=== PATIENT | female | born 1980 | race Caucasian/White ===

== ENCOUNTER 2016-06-09 17:15 | Emergency (ER) | payer OTHER ==
[~2016-06-09 17:15] MED LIST: ESTR1TD TD; LETR2.5T PO; OMEP40CA2 PO; XANA0.25 PO
[2016-06-09] MEDS ORDERED: PERCOCET 5MG/325MG TAB As Ordered ONE (20:12)
[2016-06-09 20:18] LABS: BASO # 0.1 K/mm3 (0.0-0.2); BASO % 1.7 % (0.0-1.0); EOS # 0.1 K/mm3 (0.0-0.50); EOS % 0.8 % (0.0-3.0); LARGE UNSTAINED CELL # 0.1 K/mm3 (0.0-0.4); LARGE UNSTAINED CELL % 1.4 % (0.0-4.0); LYMPH # 2.3 K/mm3 (1.5-4.5); LYMPH % 25.5 % (24.0-44.0); MEAN CORPUSCULAR HEMOGLOBIN 28.9 pg (27.0-33.0); MEAN CORPUSCULAR HGB CONC 32.4 g/dl (32.0-36.5); MEAN CORPUSCULAR VOLUME 89.3 fl (80.0-96.0); MONO # 0.3 K/mm3 (0.0-0.8); NEUTROPHILS # 5.6 K/mm3 (1.8-7.7); NEUTROPHILS % 66.5 % (36.0-66.0); PLATELET COUNT, AUTOMATED 383 k/mm3 (150-450); RED CELL DISTRIBUTION WIDTH 13.6 % (11.5-14.5); WHITE BLOOD COUNT 8.4 K/mm3 (4.0-10.0)
[2016-06-09 20:33] LABS: CONTROL LINE HCG INT CTR LINE PRESENT
[2016-06-09 20:49] LABS: ANION GAP 11 MEQ/L (8-16); BLOOD UREA NITROGEN 7 MG/DL (7-18); CALCIUM LEVEL 9.7 MG/DL (8.5-10.1); CARBON DIOXIDE LEVEL 26 MEQ/L (21-32); CHLORIDE LEVEL 106 MEQ/L (98-107); CREATININE FOR GFR 0.74 MG/DL (0.55-1.02); GLOMERULAR FILTRATION RATE > 60.0 (>60); GLUCOSE, FASTING 101 MG/DL (70-105); MAGNESIUM LEVEL 2.2 MG/DL (1.8-2.4); SODIUM LEVEL 143 MEQ/L (136-145)
--- NOTE | 2016-06-09 21:10 | REP ---
Clinical: Chest pain . Comparison: None. Findings: The mediastinum and cardiac silhouette are stable and within normal limits for portable technique. The lung dash are clear without acute consolidation, effusion, or pneumothorax. Skeletal structures are intact. Impression: Normal portable chest x-ray Signed by Martin Solis MD 06/09/2016 09:01 P
[2016-06-09] MEDS ORDERED: ISOVUE-370 76% 100ML VIAL (Q9967) As Ordered ONE (21:56)
--- NOTE | 2016-06-09 22:30 | REPUSA ---
CT angiogram of the chest Clinical statement: Chest pain and shortness of breath. Technique: Multiple axial CT images were obtained from the thoracic inlet through the upper abdomen a fter a bolus administration of nonionic intravenous contrast. Coronal and sagittal reconstructions we re also obtained. No comparison is available. Findings: The pulmonary arteries are well-opacified with contrast, with no intraluminal filling defec ts to suggest embolism. The thoracic aorta is unremarkable. Thyroid gland is within normal limits. Th ere is no thoracic lymphadenopathy. There are no pericardial or pleural effusions. The lungs are lázaro r. Limited imaging of the upper abdomen is unremarkable. There are no suspicious osseous lesions. Impression: Unremarkable CT examination of the chest. No evidence of pulmonary embolism.
--- NOTE | 2016-06-09 23:02 | EDDOCDS ---
Physician Documentation [facility] Name: Steph Morales Age: 35 yrs Sex: Female : 1980 Arrival Date: 06/09/2016 Time: 17:15 Bed 18 Private MD: NO PRIMARY PHYSICIAN, . Disposition: 06/09/16 22:52 Discharged to Home/Self Care. Impression: Palpitations, Chest pain, unspecified, Gastritis, unspecified - GERD, Ventricular premature depolarization - PVC. - Condition is Stable. - Discharge Instructions: Nonspecific Chest Pain, Gastroesophageal Reflux Disease, Adult, Palpitations, Premature Ventricular Contraction. - Prescriptions for omeprazole 20 mg Oral capsule,delayed release(DR/EC) - take 1 capsule by ORAL route once daily for 28 days; 30 capsule. - Medication Reconciliation, Local Pharmacy Hours form. - Follow up: [facility]; When: 2 - 3 days. - Problem is new. - Symptoms have improved. - Notes: follow up with PCP. return if worsening symptoms Historical: - Allergies: No known drug Allergies; - Home Meds: 1. nortriptyline 25 mg Oral cap daily - PMHx: Anxiety; GERD; Infertility; - PSHx: Hysteroscopy; D & C; upper endoscopy; - Social history: Smoking status: Patient states was never smoker of tobacco. No barriers to communication noted, The patient speaks fluent Kyrgyz. - Family history: Not pertinent. - : The pt / caregiver states he / she is not on anticoagulants. Home medication list is obtained from the patient, [employer] import data. - Exposure Risk Screening:: None identified. 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 3 in. (160.02 cm) (R); Pain 4/10; 19:15 BP 123 / 87; Pulse 79; Resp 16; Temp 96.9; Pulse Ox 100% ; Pain 0/10; cmb 19:53 BP 139 / 89 (auto/); ko2 19:54 Pulse 80 MON; Pulse Ox 100% ; ko2 20:08 BP 155 / 94 (auto/); ko2 20:08 Pulse 70 MON; Pulse Ox 100% ; ko2 20:23 BP 147 / 92 (auto/); ko2 20:24 Pulse 58 MON; Pulse Ox 100% ; ko2 20:38 BP 149 / 75 (auto/); ko2 20:38 Pulse 60 MON; Pulse Ox 100% ; ko2 20:53 BP 155 / 81 (auto/); ko2 20:53 Pulse 74 MON; Pulse Ox 98% ; ko2 21:08 BP 145 / 91 (auto/); ko2 21:08 Pulse 62 MON; Pulse Ox 100% ; ko2 22:28 BP 119 / 82 (auto/); ko2 22:29 Pulse 64 MON; Pulse Ox 99% ; ko2 17:16 Body Mass Index 25.69 (65.77 kg, 160.02 cm) gr2 MDM: 17:45 ECG WITH READING ER PHYS+CARDIAG ordered. EDMS 19:57 IV Saline Lock ordered. ml 19:57 Cigarette Machine Filler/Pulse Ox/q 15 min VS ordered. ml 19:57 Rhythm Strip to chart ordered. ml 19:57 oxyCODONE-acetaminophen 5 mg-325 mg 1 tabs PO once ordered. ml 19:57 CBC with Diff Ordered. EDMS 19:57 MED Profile Ordered. EDMS 19:57 CIP Ordered. EDMS 19:57 Troponin Ordered. EDMS 19:57 Magnesium Level Ordered. EDMS 19:57 HCG,Serum Qualitative Ordered. EDMS 19:59 Chest, 1 View Ordered. EDMS 20:02 ECG WITH READING ER PHYS+CARDIAG ordered. EDMS 20:57 CBC with Diff Reviewed. ml 20:57 MED Profile Reviewed. ml 20:57 CIP Reviewed. ml 20:57 Troponin Reviewed. ml 20:57 Magnesium Level Reviewed. ml 20:57 HCG,Serum Qualitative Reviewed. ml 20:58 CT Chest Angio R/O PE Ordered. EDMS 21:04 Financial registration complete. [email or web address] 21:33 [facility] Payment Agreement was scanned into Heavy and attached to record. [email or web address] 22:48 Chest, 1 View Reviewed. ml Administered Medications: 20:15 Drug: oxyCODONE-acetaminophen 1 tabs [oxycodone-acetaminophen 5 mg-325 mg tablet (1 ko2 tabs)] Route: PO; Signatures: Dispatcher MedHost EDMS Alhaji Landis MD MD ml Sleeman, Miranda, RN RN Inez GibbonsRN RN Leonor Betancourt RN RN ko2 Sorenson, Kimberly, Reg Reg [email or web address] The chart was reviewed and I authenticate all verbal orders and agree with the evaluation and treatment provided.Attachments: 21:33 [facility] Payment Agreement [email or web address] MTDD
--- NOTE | 2016-06-09 23:02 | EDDOCDS ---
Nurse's Notes [facility] Name: Steph Morales Age: 35 yrs Sex: Female : 1980 Arrival Date: 06/09/2016 Time: 17:15 Bed 18 Private MD: NO PRIMARY PHYSICIAN, . Diagnosis: Palpitations;Chest pain, unspecified;Gastritis, unspecified-GERD;Ventricular premature depolarization-PVC Presentation: 06/09 17:40 Presenting complaint: Patient states: she has had chest tightness for 2 hours an is kcs super gassy and her head keeps crackling. Aspirin was not taken prior to arrival. Adult Sepsis Screening: The patient does not have new or worsening altered mentation. Patient's respiratory rate is less than 22. Systolic blood pressure is greater than 100. Patient has a qSOFA score of 0- Negative Sepsis Screen. Suicide/Homicide risk assessment- the patient denies having any suicidal and/or homicidal ideations and does not present with any other emotional, behavioral or mental health complaints. Status: Patient is not a customer service assistant or dependent. Transition of care: patient was not received from another setting of care. 17:40 Acuity: JAIME Level 3 kcs 17:40 Method Of Arrival: Walkin/Carried/Asstd kcs Triage Assessment: 17:42 General: Appears comfortable, well developed, well nourished, well groomed, Behavior is kcs cooperative, pleasant. Pain: Location: epigastric area and into both arms Pain currently is 2 out of 10 on a pain scale. Quality of pain is described as tight. HIV screening NA for this visit Offered previously. Neurological: Level of Consciousness is awake, alert. Respiratory: Airway is patent Respiratory effort is even, unlabored, Respiratory pattern is regular, symmetrical. Derm: Skin is intact, is healthy with good turgor, Skin is dry, Skin is normal. 21:13 Cardiovascular: Chest pain is described as vague, radiates Does not radiate. episodes ko2 are intermittent began. 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 nortriptyline 25 mg Oral cap daily - PMHx: Anxiety; GERD; Infertility; - PSHx: Hysteroscopy; D & C; upper endoscopy; - Social history: Smoking status: Patient states was never smoker of tobacco. No barriers to communication noted, The patient speaks fluent Austrian. - Family history: Not pertinent. - : The pt / caregiver states he / she is not on anticoagulants. Home medication list is obtained from the patient, [employer] import data. - Exposure Risk Screening:: None identified. Screenin:40 Screening information is obtained from the patient. Fall risk: No risks identified. ko2 Assistance ADL's: requires no assistance with activities of daily living. Abuse/DV Screen: The patient / caregiver reports he/she is: not in a situation that causes fear, pain or injury. Nutritional screening: No deficits noted. Advance Directives: Currently, there is no health care proxy. There is no active DNR order. There is no living will. There is no Power of Morning Nanny. home support is adequate. Assessment: 19:37 General: pt states that she had some chest tightness and was "gassy" at work today. She ko2 does have a history of acid reflux but had never been that bad before. Pt states that the discomfort is getting better and on a pain scale it is a 1 out of 10. Pain: Location: epigastric area Pain currently is 1 out of 10 on a pain scale. Neurological: Level of Consciousness is awake, alert, Oriented to person, place, time. Cardiovascular: Heart tones S1 S2 present Rhythm is sinus rhythm. Respiratory: Airway is patent Respiratory effort is even, unlabored. GI: Bowel sounds present X 4 quads. Derm: Skin is normal. 20:50 General: Appears in no apparent distress, Behavior is appropriate for age, cooperative. ko2 Neurological: Level of Consciousness is awake, alert. Cardiovascular: Rhythm is sinus rhythm. Respiratory: Airway is patent Respiratory effort is even, unlabored. Derm: Skin is normal. 21:50 General: Appears in no apparent distress, Behavior is appropriate for age, cooperative. ko2 Neurological: Level of Consciousness is awake, alert, Oriented to person, place, time. Cardiovascular: Rhythm is sinus rhythm No ectopy. Respiratory: Airway is patent Respiratory effort is even, unlabored. Derm: Skin is normal. 22:59 General: Appears in no apparent distress, comfortable, Behavior is appropriate for age, tavon cooperative. Pain:. Pain: Location: head Pain currently is 3 out of 10 on a pain scale. Neurological: Neurological: Level of Consciousness is awake, alert. Respiratory: Airway is patent Respiratory effort is even, unlabored. Derm: Skin is normal. Vital Signs: 17:16 BP 151 / 97; Pulse 71; Resp 18 S; Temp 96.3(O); Pulse Ox 100% on R/A; Weight 65.77 kg gr2 (R); Height 5 ft. 3 in. (160.02 cm) (R); Pain 4/10; 19:15 BP 123 / 87; Pulse 79; Resp 16; Temp 96.9; Pulse Ox 100% ; Pain 0/10; cmb 19:53 BP 139 / 89 (auto/); ko2 19:54 Pulse 80 MON; Pulse Ox 100% ; ko2 20:08 BP 155 / 94 (auto/); ko2 20:08 Pulse 70 MON; Pulse Ox 100% ; ko2 20:23 BP 147 / 92 (auto/); ko2 20:24 Pulse 58 MON; Pulse Ox 100% ; ko2 20:38 BP 149 / 75 (auto/); ko2 20:38 Pulse 60 MON; Pulse Ox 100% ; ko2 20:53 BP 155 / 81 (auto/); ko2 20:53 Pulse 74 MON; Pulse Ox 98% ; ko2 21:08 BP 145 / 91 (auto/); ko2 21:08 Pulse 62 MON; Pulse Ox 100% ; ko2 22:28 BP 119 / 82 (auto/); ko2 22:29 Pulse 64 MON; Pulse Ox 99% ; ko2 17:16 Body Mass Index 25.69 (65.77 kg, 160.02 cm) gr2 Vitals: 17:16 Log In Time: June 09, 2016 at 17:16. gr2 ED Course: 17:16 Patient visited by Zay Manley. gr2 17:16 NO PRIMARY PHYSICIAN, . is Private Physician. gr2 17:16 Patient moved to Waiting gr2 17:17 Patient visited by Zay Manley. gr2 17:17 Patient moved to Pre RCE gr2 17:41 Triage Initiated kcs 17:50 EKG done. (by ED staff). Reviewed by Puneet Blandon DO. ar3 17:52 Patient visited by Noemi Bell PCA. ar3 19:18 Patient visited by Alma Waldron. cmb 19:32 Leonor Valentine,RN is Primary Nurse. lf1 19:32 Patient moved to 18 lf1 19:37 Patient visited by Leonor Valentine,RN. ko2 19:40 Pt greeted and oriented to ED. Patient advised of names of staff involved in care, andrea location of call canales, wait times and NPO status. Accompanied by Significant Other, Patient has correct armband on for positive identification. Placed in gown. Bed in low position. Call light in reach. liquid sugar melter on. Pulse ox on. NIBP on. 19:41 Patient visited by Rashida Echevarria PCA. andrea 19:42 Alhaji Landis MD is Attending Physician. ml 19:42 Patient visited by Alhaji Landis MD. ml 20:01 EKG done. (by ED staff). Reviewed by Alhaji Landis MD. andrea 20:11 HCG,Serum Qualitative Sent. ko2 20:11 Magnesium Level Sent. ko2 20:11 Troponin Sent. ko2 20:11 CIP Sent. ko2 20:11 MED Profile Sent. ko2 20:11 CBC with Diff Sent. ko2 20:11 Inserted saline lock: 20 gauge in right antecubital area and blood collected. The ko2 patient tolerated the procedure well. 20:15 Patient visited by Leonor Valentine RN. ko2 20:15 Leonor Valentine,RN is Primary Nurse. ko2 20:51 Patient visited by Leonor Valentine,SHAMEKA. ko2 21:13 The patient / caregiver is instructed regarding the plan of care and ED course. ko2 21:33 [facility] Payment Agreement was scanned into [employer] and attached to record. [email or web address] 21:33 Chest, 1 View Returned. EDMS 21:48 Patient visited by Rashida Echevarria PCA. andrea 22:35 Patient visited by Leonor Valentine,RN. ko2 22:51 [facility] is Referral Physician. ml 23:00 Discontinued lock intact, bleeding controlled, pressure dressing applied, No tavon redness/swelling at site. No procedures done that require assistance. Administered Medications: 20:15 Drug: oxyCODONE-acetaminophen 1 tabs [oxycodone-acetaminophen 5 mg-325 mg tablet (1 ko2 tabs)] Route: PO; Order Results: Lab Order: CBC with Diff; SPEC'M 06/09/16 20:10 Test: WHITE BLOOD COUNT; Value: 8.4; Range: 4.0-10.0; Units: K/mm3; Status: F Test: RED BLOOD COUNT; Value: 4.59; Range: 4.00-5.40; Units: M/mm3; Status: F Test: HEMOGLOBIN; Value: 13.3; Range: 12.0-16.0; Units: g/dl; Status: F Test: HEMATOCRIT; Value: 41.0; Range: 36.0-47.0; Units: %; Status: F Test: MEAN CORPUSCULAR VOLUME; Value: 89.3; Range: 80.0-96.0; Units: fl; Status: F Test: MEAN CORPUSCULAR HEMOGLOBIN; Value: 28.9; Range: 27.0-33.0; Units: pg; Status: F Test: MEAN CORPUSCULAR HGB CONC; Value: 32.4; Range: 32.0-36.5; Units: g/dl; Status: F Test: RED CELL DISTRIBUTION WIDTH; Value: 13.6; Range: 11.5-14.5; Units: %; Status: F Test: PLATELET COUNT, AUTOMATED; Value: 383; Range: 150-450; Units: k/mm3; Status: F Test: NEUTROPHILS %; Value: 66.5; Range: 36.0-66.0; Abnormal: Above high normal; Units: %; Status: F Test: LYMPH %; Value: 25.5; Range: 24.0-44.0; Units: %; Status: F Test: MONO %; Value: 4.0; Range: 0.0-5.0; Units: %; Status: F Test: EOS %; Value: 0.8; Range: 0.0-3.0; Units: %; Status: F Test: BASO %; Value: 1.7; Range: 0.0-1.0; Abnormal: Above high normal; Units: %; Status: F Test: LARGE UNSTAINED CELL %; Value: 1.4; Range: 0.0-4.0; Units: %; Status: F Test: NEUTROPHILS #; Value: 5.6; Range: 1.8-7.7; Units: K/mm3; Status: F Test: LYMPH #; Value: 2.3; Range: 1.5-4.5; Units: K/mm3; Status: F Test: MONO #; Value: 0.3; Range: 0.0-0.8; Units: K/mm3; Status: F Test: EOS #; Value: 0.1; Range: 0.0-0.50; Units: K/mm3; Status: F Test: BASO #; Value: 0.1; Range: 0.0-0.2; Units: K/mm3; Status: F Test: LARGE UNSTAINED CELL #; Value: 0.1; Range: 0.0-0.4; Units: K/mm3; Status: F Lab Order: MED Profile; SPEC'M 06/09/16 20:10 Test: GLUCOSE, FASTING; Value: 101; Range: 70-105; Units: MG/DL; Status: F Test: BLOOD UREA NITROGEN; Value: 7; Range: 7-18; Units: MG/DL; Status: F Test: CREATININE FOR GFR; Value: 0.74; Range: 0.55-1.02; Units: MG/DL; Status: F Test: SODIUM LEVEL; Range: 136-145; Units: MEQ/L; Status: I Test: POTASSIUM SERUM; Range: 3.5-5.1; Units: MEQ/L; Status: I Test: CHLORIDE LEVEL; Range: 98-107; Units: MEQ/L; Status: I Test: CARBON DIOXIDE LEVEL; Range: 21-32; Units: MEQ/L; Status: I Test: ANION GAP; Range: 8-16; Units: MEQ/L; Status: I Test: CALCIUM LEVEL; Range: 8.5-10.1; Units: MG/DL; Status: I Test: GLOMERULAR FILTRATION RATE; Value: > 60.0; Range: >60; Status: F Test: SODIUM LEVEL; Value: 143; Range: 136-145; Units: MEQ/L; Status: F Test: POTASSIUM SERUM; Value: 4.0; Range: 3.5-5.1; Units: MEQ/L; Status: F Test: CHLORIDE LEVEL; Value: 106; Range: 98-107; Units: MEQ/L; Status: F Test: CARBON DIOXIDE LEVEL; Value: 26; Range: 21-32; Units: MEQ/L; Status: F Test: ANION GAP; Value: 11; Range: 8-16; Units: MEQ/L; Status: F Test: CALCIUM LEVEL; Value: 9.7; Range: 8.5-10.1; Units: MG/DL; Status: F Test Note: ; Units are mL/min/1.73 m2 Chronic Kidney Disease Staging per NKF: Stage I & II GFR >=60 Normal to Mildly Decreased Stage III GFR 30-59 Moderately Decreased Stage IV GFR 15-29 Severely Decreased Stage V GFR <15 Very Little GFR Left ESRD GFR <15 on FREIGHT CLAIM INVESTIGATOR Lab Order: CIP; 06/09/16 20:10 Test: CPK CREATINE PHOSPHOKINASE; Value: 76; Range: 26-192; Units: U/L; Status: F Test: CK-MB VALUE MASS; Value: 1.0; Range: 0.0-3.6; Units: NG/ML; Status: F Test: MB/CK RELATIVE INDEX; Value: 1.31; Range: < OR =4; Status: F Test Note: ; DIAGNOSIS CRITERIA MMB ng/ml Relative Index (RI) NON-AMI < or = 5 N/A ARANDA ZONE > 5 < or = 4 AMI > 5 > 4 Lab Order: Troponin; 06/09/16 20:10 Test: TROPONIN I; Value: < 0.02; Range: < 0.10; Units: NG/ML; Status: F Test Note: ; Troponin I Reference Interval for iMega LOCI: 99th Percentile= 0.00-0.045 ng/ml Risk Stratification: <= 0.10 ng/ml Decreased Risk for Adverse Clinical Events. 0.10-1.50 ng/ml Increased Risk for Adverse Clinical Events. Evaluation of additional criterion and/or repeat testing in 2-6 hours is suggested to rule out myocardial damage. >= 1.50 ng/ml Indicative of Myocardial Injury. Lab Order: Magnesium Level; 06/09/16 20:10 Test: MAGNESIUM LEVEL; Value: 2.2; Range: 1.8-2.4; Units: MG/DL; Status: F Lab Order: HCG,Serum Qualitative; 06/09/16 20:10 Test: HCG, SERUM QUALITATIVE; Value: NEGATIVE; Range: NEGATIVE; Status: F Radiology Order: Chest, 1 View Test: Chest, 1 View REASON FOR EXAMINATION: Chest Pain; Clinical: Chest pain .; ; Comparison: None.; ; Findings:; The mediastinum and cardiac silhouette are stable and within normal limits for; portable technique. The lung dash are clear without acute consolidation,; effusion, or pneumothorax. Skeletal structures are intact.; ; Impression:; Normal portable chest x-ray; ; ; Signed by; Martin Solis MD 06/09/2016 09:01 P; Outcome: 22:52 Discharge ordered by Provider. 23:00 Discharge Assessment: Patient awake, alert and oriented x 3. No cognitive and/or tavon functional deficits noted. Patient verbalized understanding of disposition instructions. patient administered narcotics - yes. Pt provided with safe discharge. The following High Risk Discharge criteria are identified: None. Condition: good. Discharge instructions given to patient, Instructed on discharge instructions, follow up and referral plans. Demonstrated understanding of instructions, Pt was receptive of discharge instructions/ teaching. CT Study completed. 23:01 Property sent home with patient. tavon 23:02 Patient left the ED. tavon Signatures: Dispatcher MedHost EDMS Alhaji Landis MD MD ml Sleeman, Kacey, RN RN Inez Gibbons,RN RN Keli Tabor,RN RN lf1 Noemi Bell, GLOBAL SALES DIRECTOR GLOBAL SALES DIRECTOR ar3 Rashida Echevarria, GLOBAL SALES DIRECTOR GLOBAL SALES DIRECTOR Alma Navarro cmZay Franco gr2 Leonor Valentine RN RN renay2 Lillian Cote, Reg Reg [email or web address] MTDD
--- NOTE | 2016-06-10 19:48 | ECGEPIP ---
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
--- NOTE | 2016-06-10 19:49 | ECGEPIP ---
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
--- NOTE | 2016-06-12 00:02 | EDDOCDS ---
Physician Documentation [facility] Name: Steph Morales Age: 35 yrs Sex: Female : 1980 Arrival Date: 06/09/2016 Time: 17:15 Bed 18 Private MD: NO PRIMARY PHYSICIAN, . Disposition: 06/09/16 22:52 Discharged to Home/Self Care. Impression: Palpitations, Chest pain, unspecified, Gastritis, unspecified - GERD, Ventricular premature depolarization - PVC. - Condition is Stable. - Discharge Instructions: Nonspecific Chest Pain, Gastroesophageal Reflux Disease, Adult, Palpitations, Premature Ventricular Contraction. - Prescriptions for omeprazole 20 mg Oral capsule,delayed release(DR/EC) - take 1 capsule by ORAL route once daily for 28 days; 30 capsule. - Medication Reconciliation, Local Pharmacy Hours form. - Follow up: [facility]; When: 2 - 3 days. - Problem is new. - Symptoms have improved. - Notes: follow up with PCP. return if worsening symptoms Historical: - Allergies: No known drug Allergies; - Home Meds: 1. nortriptyline 25 mg Oral cap daily - PMHx: Anxiety; GERD; Infertility; - PSHx: Hysteroscopy; D & C; upper endoscopy; - Social history: Smoking status: Patient states was never smoker of tobacco. No barriers to communication noted, The patient speaks fluent Bruneian. - Family history: Not pertinent. - : The pt / caregiver states he / she is not on anticoagulants. Home medication list is obtained from the patient, [employer] import data. - Exposure Risk Screening:: None identified. 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 3 in. (160.02 cm) (R); Pain 4/10; 19:15 BP 123 / 87; Pulse 79; Resp 16; Temp 96.9; Pulse Ox 100% ; Pain 0/10; cmb 19:53 BP 139 / 89 (auto/); ko2 19:54 Pulse 80 MON; Pulse Ox 100% ; ko2 20:08 BP 155 / 94 (auto/); ko2 20:08 Pulse 70 MON; Pulse Ox 100% ; ko2 20:23 BP 147 / 92 (auto/); ko2 20:24 Pulse 58 MON; Pulse Ox 100% ; ko2 20:38 BP 149 / 75 (auto/); ko2 20:38 Pulse 60 MON; Pulse Ox 100% ; ko2 20:53 BP 155 / 81 (auto/); ko2 20:53 Pulse 74 MON; Pulse Ox 98% ; ko2 21:08 BP 145 / 91 (auto/); ko2 21:08 Pulse 62 MON; Pulse Ox 100% ; ko2 22:28 BP 119 / 82 (auto/); ko2 22:29 Pulse 64 MON; Pulse Ox 99% ; ko2 17:16 Body Mass Index 25.69 (65.77 kg, 160.02 cm) gr2 MDM: 17:45 ECG WITH READING ER PHYS+CARDIAG ordered. EDMS 19:57 IV Saline Lock ordered. ml 19:57 Insurance Broker/Pulse Ox/q 15 min VS ordered. ml 19:57 Rhythm Strip to chart ordered. ml 19:57 oxyCODONE-acetaminophen 5 mg-325 mg 1 tabs PO once ordered. ml 19:57 CBC with Diff Ordered. EDMS 19:57 MED Profile Ordered. EDMS 19:57 CIP Ordered. EDMS 19:57 Troponin Ordered. EDMS 19:57 Magnesium Level Ordered. EDMS 19:57 HCG,Serum Qualitative Ordered. EDMS 19:59 Chest, 1 View Ordered. EDMS 20:02 ECG WITH READING ER PHYS+CARDIAG ordered. EDMS 20:57 CBC with Diff Reviewed. ml 20:57 MED Profile Reviewed. ml 20:57 CIP Reviewed. ml 20:57 Troponin Reviewed. ml 20:57 Magnesium Level Reviewed. ml 20:57 HCG,Serum Qualitative Reviewed. ml 20:58 CT Chest Angio R/O PE Ordered. EDMS 21:04 Financial registration complete. [email or web address] 21:33 [facility] Payment Agreement was scanned into Med[employer] and attached to record. ks16 22:48 Chest, 1 View Reviewed. ml 06/10 11:26 T-Sheet-- Draft Copy was scanned into Medify and attached to record. gb 11:26 ECG/EKG was scanned into Med[employer] and attached to record. gb 11:26 Radiology Report was scanned into Med[employer] and attached to record. gb Administered Medications: 06/09 20:15 Drug: oxyCODONE-acetaminophen 1 tabs [oxycodone-acetaminophen 5 mg-325 mg tablet (1 ko2 tabs)] Route: PO; Signatures: Dispatcher MedHost EDAlhaji Naqvi MD MD ml Sleeman, Kacey, RN RN kcs Sovie, Carolyn, RN RN cas Barnhardt, Gloria, Reg Reg gb Leonor Valentine RN RN ko2 Lillian Cote, Reg Reg [email or web address] The chart was reviewed and I authenticate all verbal orders and agree with the evaluation and treatment provided.Attachments: 21:33 [facility] Payment Agreement [email or web address] 06/10 11:26 T-Sheet-- Draft Copy 11:26 ECG/EKG Chart Complete MTDD
--- NOTE | 2016-06-12 00:02 | EDDOCDS ---
Physician Documentation [facility] Name: Steph Morales Age: 35 yrs Sex: Female : 1980 Arrival Date: 06/09/2016 Time: 17:15 Bed 18 Private MD: NO PRIMARY PHYSICIAN, . Disposition: 06/09/16 22:52 Discharged to Home/Self Care. Impression: Palpitations, Chest pain, unspecified, Gastritis, unspecified - GERD, Ventricular premature depolarization - PVC. - Condition is Stable. - Discharge Instructions: Nonspecific Chest Pain, Gastroesophageal Reflux Disease, Adult, Palpitations, Premature Ventricular Contraction. - Prescriptions for omeprazole 20 mg Oral capsule,delayed release(DR/EC) - take 1 capsule by ORAL route once daily for 28 days; 30 capsule. - Medication Reconciliation, Local Pharmacy Hours form. - Follow up: [facility]; When: 2 - 3 days. - Problem is new. - Symptoms have improved. - Notes: follow up with PCP. return if worsening symptoms Historical: - Allergies: No known drug Allergies; - Home Meds: 1. nortriptyline 25 mg Oral cap daily - PMHx: Anxiety; GERD; Infertility; - PSHx: Hysteroscopy; D & C; upper endoscopy; - Social history: Smoking status: Patient states was never smoker of tobacco. No barriers to communication noted, The patient speaks fluent [place] Islander. - Family history: Not pertinent. - : The pt / caregiver states he / she is not on anticoagulants. Home medication list is obtained from the patient, [employer] import data. - Exposure Risk Screening:: None identified. 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 3 in. (160.02 cm) (R); Pain 4/10; 19:15 BP 123 / 87; Pulse 79; Resp 16; Temp 96.9; Pulse Ox 100% ; Pain 0/10; cmb 19:53 BP 139 / 89 (auto/); ko2 19:54 Pulse 80 MON; Pulse Ox 100% ; ko2 20:08 BP 155 / 94 (auto/); ko2 20:08 Pulse 70 MON; Pulse Ox 100% ; ko2 20:23 BP 147 / 92 (auto/); ko2 20:24 Pulse 58 MON; Pulse Ox 100% ; ko2 20:38 BP 149 / 75 (auto/); ko2 20:38 Pulse 60 MON; Pulse Ox 100% ; ko2 20:53 BP 155 / 81 (auto/); ko2 20:53 Pulse 74 MON; Pulse Ox 98% ; ko2 21:08 BP 145 / 91 (auto/); ko2 21:08 Pulse 62 MON; Pulse Ox 100% ; ko2 22:28 BP 119 / 82 (auto/); ko2 22:29 Pulse 64 MON; Pulse Ox 99% ; ko2 17:16 Body Mass Index 25.69 (65.77 kg, 160.02 cm) gr2 MDM: 17:45 ECG WITH READING ER PHYS+CARDIAG ordered. EDMS 19:57 IV Saline Lock ordered. ml 19:57 Certified Pesticide Applicator/Pulse Ox/q 15 min VS ordered. ml 19:57 Rhythm Strip to chart ordered. ml 19:57 oxyCODONE-acetaminophen 5 mg-325 mg 1 tabs PO once ordered. ml 19:57 CBC with Diff Ordered. EDMS 19:57 MED Profile Ordered. EDMS 19:57 CIP Ordered. EDMS 19:57 Troponin Ordered. EDMS 19:57 Magnesium Level Ordered. EDMS 19:57 HCG,Serum Qualitative Ordered. EDMS 19:59 Chest, 1 View Ordered. EDMS 20:02 ECG WITH READING ER PHYS+CARDIAG ordered. EDMS 20:57 CBC with Diff Reviewed. ml 20:57 MED Profile Reviewed. ml 20:57 CIP Reviewed. ml 20:57 Troponin Reviewed. ml 20:57 Magnesium Level Reviewed. ml 20:57 HCG,Serum Qualitative Reviewed. ml 20:58 CT Chest Angio R/O PE Ordered. EDMS 21:04 Financial registration complete. [email or web address] 21:33 [facility] Payment Agreement was scanned into [employer] and attached to record. ks16 22:48 Chest, 1 View Reviewed. ml 06/10 11:26 T-Sheet-- Draft Copy was scanned into [employer] and attached to record. gb 11:26 ECG/EKG was scanned into [employer] and attached to record. gb 11:26 Radiology Report was scanned into [employer] and attached to record. gb Administered Medications: 06/09 20:15 Drug: oxyCODONE-acetaminophen 1 tabs [oxycodone-acetaminophen 5 mg-325 mg tablet (1 ko2 tabs)] Route: PO; Signatures: Dispatcher [employer] EDAlhaji Naqvi MD MD ml Sleeman, Kacey, RN RN kcs Sovie, Carolyn, RN RN cas Barnhardt, Gloria, Reg Reg gb Leonor Valentine RN RN ko2 Lillian Cote, Reg Reg ks16 The chart was reviewed and I authenticate all verbal orders and agree with the evaluation and treatment provided.Attachments: 21:33 [facility] Payment Agreement [email or web address] 06/10 11:26 T-Sheet-- Draft Copy 11:26 ECG/EKG Chart Complete MTDD
--- NOTE | 2016-06-12 00:02 | EDDOCDS ---
Nurse's Notes [facility] Name: Steph Morales Age: 35 yrs Sex: Female : 1980 Arrival Date: 06/09/2016 Time: 17:15 Bed 18 Private MD: NO PRIMARY PHYSICIAN, . Diagnosis: Palpitations;Chest pain, unspecified;Gastritis, unspecified-GERD;Ventricular premature depolarization-PVC Presentation: 06/09 17:40 Presenting complaint: Patient states: she has had chest tightness for 2 hours an is kcs super gassy and her head keeps crackling. Aspirin was not taken prior to arrival. Adult Sepsis Screening: The patient does not have new or worsening altered mentation. Patient's respiratory rate is less than 22. Systolic blood pressure is greater than 100. Patient has a qSOFA score of 0- Negative Sepsis Screen. Suicide/Homicide risk assessment- the patient denies having any suicidal and/or homicidal ideations and does not present with any other emotional, behavioral or mental health complaints. Status: Patient is not a clinical services assistant or dependent. Transition of care: patient was not received from another setting of care. 17:40 Acuity: JAIME Level 3 kcs 17:40 Method Of Arrival: Walkin/Carried/Asstd kcs Triage Assessment: 17:42 General: Appears comfortable, well developed, well nourished, well groomed, Behavior is kcs cooperative, pleasant. Pain: Location: epigastric area and into both arms Pain currently is 2 out of 10 on a pain scale. Quality of pain is described as tight. HIV screening NA for this visit Offered previously. Neurological: Level of Consciousness is awake, alert. Respiratory: Airway is patent Respiratory effort is even, unlabored, Respiratory pattern is regular, symmetrical. Derm: Skin is intact, is healthy with good turgor, Skin is dry, Skin is normal. 21:13 Cardiovascular: Chest pain is described as vague, radiates Does not radiate. episodes ko2 are intermittent began. 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 nortriptyline 25 mg Oral cap daily - PMHx: Anxiety; GERD; Infertility; - PSHx: Hysteroscopy; D & C; upper endoscopy; - Social history: Smoking status: Patient states was never smoker of tobacco. No barriers to communication noted, The patient speaks fluent Guamanian. - Family history: Not pertinent. - : The pt / caregiver states he / she is not on anticoagulants. Home medication list is obtained from the patient, [employer] import data. - Exposure Risk Screening:: None identified. Screenin:40 Screening information is obtained from the patient. Fall risk: No risks identified. ko2 Assistance ADL's: requires no assistance with activities of daily living. Abuse/DV Screen: The patient / caregiver reports he/she is: not in a situation that causes fear, pain or injury. Nutritional screening: No deficits noted. Advance Directives: Currently, there is no health care proxy. There is no active DNR order. There is no living will. There is no Power of Research Soil Scientist. home support is adequate. Assessment: 19:37 General: pt states that she had some chest tightness and was "gassy" at work today. She ko2 does have a history of acid reflux but had never been that bad before. Pt states that the discomfort is getting better and on a pain scale it is a 1 out of 10. Pain: Location: epigastric area Pain currently is 1 out of 10 on a pain scale. Neurological: Level of Consciousness is awake, alert, Oriented to person, place, time. Cardiovascular: Heart tones S1 S2 present Rhythm is sinus rhythm. Respiratory: Airway is patent Respiratory effort is even, unlabored. GI: Bowel sounds present X 4 quads. Derm: Skin is normal. 20:50 General: Appears in no apparent distress, Behavior is appropriate for age, cooperative. ko2 Neurological: Level of Consciousness is awake, alert. Cardiovascular: Rhythm is sinus rhythm. Respiratory: Airway is patent Respiratory effort is even, unlabored. Derm: Skin is normal. 21:50 General: Appears in no apparent distress, Behavior is appropriate for age, cooperative. ko2 Neurological: Level of Consciousness is awake, alert, Oriented to person, place, time. Cardiovascular: Rhythm is sinus rhythm No ectopy. Respiratory: Airway is patent Respiratory effort is even, unlabored. Derm: Skin is normal. 22:59 General: Appears in no apparent distress, comfortable, Behavior is appropriate for age, tavon cooperative. Pain:. Pain: Location: head Pain currently is 3 out of 10 on a pain scale. Neurological: Neurological: Level of Consciousness is awake, alert. Respiratory: Airway is patent Respiratory effort is even, unlabored. Derm: Skin is normal. Vital Signs: 17:16 BP 151 / 97; Pulse 71; Resp 18 S; Temp 96.3(O); Pulse Ox 100% on R/A; Weight 65.77 kg gr2 (R); Height 5 ft. 3 in. (160.02 cm) (R); Pain 4/10; 19:15 BP 123 / 87; Pulse 79; Resp 16; Temp 96.9; Pulse Ox 100% ; Pain 0/10; cmb 19:53 BP 139 / 89 (auto/); ko2 19:54 Pulse 80 MON; Pulse Ox 100% ; ko2 20:08 BP 155 / 94 (auto/); ko2 20:08 Pulse 70 MON; Pulse Ox 100% ; ko2 20:23 BP 147 / 92 (auto/); ko2 20:24 Pulse 58 MON; Pulse Ox 100% ; ko2 20:38 BP 149 / 75 (auto/); ko2 20:38 Pulse 60 MON; Pulse Ox 100% ; ko2 20:53 BP 155 / 81 (auto/); ko2 20:53 Pulse 74 MON; Pulse Ox 98% ; ko2 21:08 BP 145 / 91 (auto/); ko2 21:08 Pulse 62 MON; Pulse Ox 100% ; ko2 22:28 BP 119 / 82 (auto/); ko2 22:29 Pulse 64 MON; Pulse Ox 99% ; ko2 17:16 Body Mass Index 25.69 (65.77 kg, 160.02 cm) gr2 Vitals: 17:16 Log In Time: June 09, 2016 at 17:16. gr2 ED Course: 17:16 Patient visited by Zay Manley. gr2 17:16 NO PRIMARY PHYSICIAN, . is Private Physician. gr2 17:16 Patient moved to Waiting gr2 17:17 Patient visited by Zay Manley. gr2 17:17 Patient moved to Pre RCE gr2 17:41 Triage Initiated kcs 17:50 EKG done. (by ED staff). Reviewed by Puneet Blandon DO. ar3 17:52 Patient visited by Noemi Bell PCA. ar3 19:18 Patient visited by Alma Waldron. cmb 19:32 Leonor Valentine,RN is Primary Nurse. lf1 19:32 Patient moved to 18 lf1 19:37 Patient visited by Leonor Valentine,RN. ko2 19:40 Pt greeted and oriented to ED. Patient advised of names of staff involved in care, andrea location of call canales, wait times and NPO status. Accompanied by Significant Other, Patient has correct armband on for positive identification. Placed in gown. Bed in low position. Call light in reach. monitor car operator on. Pulse ox on. NIBP on. 19:41 Patient visited by Rashida Echevarria PCA. andrea 19:42 Alhaji Landis MD is Attending Physician. ml 19:42 Patient visited by Alhaji Landis MD. ml 20:01 EKG done. (by ED staff). Reviewed by Alhaji Landis MD. andrea 20:11 HCG,Serum Qualitative Sent. ko2 20:11 Magnesium Level Sent. ko2 20:11 Troponin Sent. ko2 20:11 CIP Sent. ko2 20:11 MED Profile Sent. ko2 20:11 CBC with Diff Sent. ko2 20:11 Inserted saline lock: 20 gauge in right antecubital area and blood collected. The ko2 patient tolerated the procedure well. 20:15 Patient visited by Leonor Valentine,SHAMEKA. ko2 20:15 Leonor Valentine,RN is Primary Nurse. ko2 20:51 Patient visited by Leonor Valentine,SHAMEKA. ko2 21:13 The patient / caregiver is instructed regarding the plan of care and ED course. ko2 21:33 [facility] Payment Agreement was scanned into [employer] and attached to record. ks16 21:33 Chest, 1 View Returned. EDMS 21:48 Patient visited by Rashida Echevarria PCA. andrea 22:35 Patient visited by Leonor Valentine,RN. ko2 22:51 [facility] is Referral Physician. ml 23:00 Discontinued lock intact, bleeding controlled, pressure dressing applied, No tavon redness/swelling at site. No procedures done that require assistance. 23:21 CT Chest Angio R/O PE Returned. EDMS 04 11:26 T-Sheet-- Draft Copy was scanned into [employer] and attached to record. gb 11:26 ECG/EKG was scanned into [employer] and attached to record. gb 11:26 Radiology Report was scanned into [employer] and attached to record. gb 20:05 EKG-ADULT Returned. EDMS 20:05 EKG-ADULT Returned. EDMS Administered Medications: 06/09 20:15 Drug: oxyCODONE-acetaminophen 1 tabs [oxycodone-acetaminophen 5 mg-325 mg tablet (1 ko2 tabs)] Route: PO; Order Results: Lab Order: CBC with Diff; SPEC'M 06/09/16 20:10 Test: WHITE BLOOD COUNT; Value: 8.4; Range: 4.0-10.0; Units: K/mm3; Status: F Test: RED BLOOD COUNT; Value: 4.59; Range: 4.00-5.40; Units: M/mm3; Status: F Test: HEMOGLOBIN; Value: 13.3; Range: 12.0-16.0; Units: g/dl; Status: F Test: HEMATOCRIT; Value: 41.0; Range: 36.0-47.0; Units: %; Status: F Test: MEAN CORPUSCULAR VOLUME; Value: 89.3; Range: 80.0-96.0; Units: fl; Status: F Test: MEAN CORPUSCULAR HEMOGLOBIN; Value: 28.9; Range: 27.0-33.0; Units: pg; Status: F Test: MEAN CORPUSCULAR HGB CONC; Value: 32.4; Range: 32.0-36.5; Units: g/dl; Status: F Test: RED CELL DISTRIBUTION WIDTH; Value: 13.6; Range: 11.5-14.5; Units: %; Status: F Test: PLATELET COUNT, AUTOMATED; Value: 383; Range: 150-450; Units: k/mm3; Status: F Test: NEUTROPHILS %; Value: 66.5; Range: 36.0-66.0; Abnormal: Above high normal; Units: %; Status: F Test: LYMPH %; Value: 25.5; Range: 24.0-44.0; Units: %; Status: F Test: MONO %; Value: 4.0; Range: 0.0-5.0; Units: %; Status: F Test: EOS %; Value: 0.8; Range: 0.0-3.0; Units: %; Status: F Test: BASO %; Value: 1.7; Range: 0.0-1.0; Abnormal: Above high normal; Units: %; Status: F Test: LARGE UNSTAINED CELL %; Value: 1.4; Range: 0.0-4.0; Units: %; Status: F Test: NEUTROPHILS #; Value: 5.6; Range: 1.8-7.7; Units: K/mm3; Status: F Test: LYMPH #; Value: 2.3; Range: 1.5-4.5; Units: K/mm3; Status: F Test: MONO #; Value: 0.3; Range: 0.0-0.8; Units: K/mm3; Status: F Test: EOS #; Value: 0.1; Range: 0.0-0.50; Units: K/mm3; Status: F Test: BASO #; Value: 0.1; Range: 0.0-0.2; Units: K/mm3; Status: F Test: LARGE UNSTAINED CELL #; Value: 0.1; Range: 0.0-0.4; Units: K/mm3; Status: F Lab Order: MED Profile; SPEC'M 06/09/16 20:10 Test: GLUCOSE, FASTING; Value: 101; Range: 70-105; Units: MG/DL; Status: F Test: BLOOD UREA NITROGEN; Value: 7; Range: 7-18; Units: MG/DL; Status: F Test: CREATININE FOR GFR; Value: 0.74; Range: 0.55-1.02; Units: MG/DL; Status: F Test: SODIUM LEVEL; Range: 136-145; Units: MEQ/L; Status: I Test: POTASSIUM SERUM; Range: 3.5-5.1; Units: MEQ/L; Status: I Test: CHLORIDE LEVEL; Range: 98-107; Units: MEQ/L; Status: I Test: CARBON DIOXIDE LEVEL; Range: 21-32; Units: MEQ/L; Status: I Test: ANION GAP; Range: 8-16; Units: MEQ/L; Status: I Test: CALCIUM LEVEL; Range: 8.5-10.1; Units: MG/DL; Status: I Test: GLOMERULAR FILTRATION RATE; Value: > 60.0; Range: >60; Status: F Test: SODIUM LEVEL; Value: 143; Range: 136-145; Units: MEQ/L; Status: F Test: POTASSIUM SERUM; Value: 4.0; Range: 3.5-5.1; Units: MEQ/L; Status: F Test: CHLORIDE LEVEL; Value: 106; Range: 98-107; Units: MEQ/L; Status: F Test: CARBON DIOXIDE LEVEL; Value: 26; Range: 21-32; Units: MEQ/L; Status: F Test: ANION GAP; Value: 11; Range: 8-16; Units: MEQ/L; Status: F Test: CALCIUM LEVEL; Value: 9.7; Range: 8.5-10.1; Units: MG/DL; Status: F Test Note: ; Units are mL/min/1.73 m2 Chronic Kidney Disease Staging per NKF: Stage I & II GFR >=60 Normal to Mildly Decreased Stage III GFR 30-59 Moderately Decreased Stage IV GFR 15-29 Severely Decreased Stage V GFR <15 Very Little GFR Left ESRD GFR <15 on HEALTH RECORDS TECHNOLOGY TEACHER Lab Order: CIP; SPEC'M 06/09/16 20:10 Test: CPK CREATINE PHOSPHOKINASE; Value: 76; Range: 26-192; Units: U/L; Status: F Test: CK-MB VALUE MASS; Value: 1.0; Range: 0.0-3.6; Units: NG/ML; Status: F Test: MB/CK RELATIVE INDEX; Value: 1.31; Range: < OR =4; Status: F Test Note: ; DIAGNOSIS CRITERIA MMB ng/ml Relative Index (RI) NON-AMI < or = 5 N/A ARANDA ZONE > 5 < or = 4 AMI > 5 > 4 Lab Order: Troponin; SPEC'M 06/09/16 20:10 Test: TROPONIN I; Value: < 0.02; Range: < 0.10; Units: NG/ML; Status: F Test Note: ; Troponin I Reference Interval for [employer] LOCI: 99th Percentile= 0.00-0.045 ng/ml Risk Stratification: <= 0.10 ng/ml Decreased Risk for Adverse Clinical Events. 0.10-1.50 ng/ml Increased Risk for Adverse Clinical Events. Evaluation of additional criterion and/or repeat testing in 2-6 hours is suggested to rule out myocardial damage. >= 1.50 ng/ml Indicative of Myocardial Injury. Lab Order: Magnesium Level; SPEC'M 06/09/16 20:10 Test: MAGNESIUM LEVEL; Value: 2.2; Range: 1.8-2.4; Units: MG/DL; Status: F Lab Order: HCG,Serum Qualitative; SPEC'M 06/09/16 20:10 Test: HCG, SERUM QUALITATIVE; Value: NEGATIVE; Range: NEGATIVE; Status: F Radiology Order: EKG-ADULT Test: EKG-ADULT REASON FOR EXAMINATION: Chest Pain; Stationary ECG Study; [facility] ED; ; Test Date: 2016-06-09; Pat Name: [facility] Department:; Room: -; Gender: F Carpet Cleaner: tyree; : 1980 Requested By: Selam Espinoza; Order Number: [id number] Reading MD: Selam Espinoza; Measurements; Intervals [place]; Rate: 84 P: -40; MD: 131 QRS: 65; QRSD: 94 T: 31; QT: 386; QTc: 457; Interpretive Statements; SINUS RHYTHM WITH FREQUENT VENTRICULAR PREMATURE COMPLEXES; ABNORMAL RHYTHM ECG; NO PRIOR FOR COMPARISON; Electronically Signed On 06-10-2016 19:48:04 EST by Selam Espinoza; Radiology Order: Chest, 1 View Test: Chest, 1 View REASON FOR EXAMINATION: Chest Pain; Clinical: Chest pain .; ; Comparison: None.; ; Findings:; The mediastinum and cardiac silhouette are stable and within normal limits for; portable technique. The lung dash are clear without acute consolidation,; effusion, or pneumothorax. Skeletal structures are intact.; ; Impression:; Normal portable chest x-ray; ; ; Signed by; Martin Solis MD 06/09/2016 09:01 P; Radiology Order: EKG-ADULT Test: EKG-ADULT REASON FOR EXAMINATION: Chest Pain; Stationary ECG Study; [facility] ED; ; Test Date: 2016-06-09; Pat Name: [facility] Department:; Room: -; Gender: F Carpet Cleaner: gaston; : 1980 Requested By: Alhaji Landis; Order Number: [id number] Reading MD: Selam Espinoza; Measurements; Intervals [place]; Rate: 65 P: -20; MD: 124 QRS: 49; QRSD: 95 T: 22; QT: 401; QTc: 419; Interpretive Statements; SINUS RHYTHM WITH SINUS ARRHYTHMIA; DECREASED ECTOPY 06/09/16; Electronically Signed On 06-10-2016 19:49:27 EST by Selam Espinoza; Radiology Order: CT Chest Angio R/O PE Test: CT Chest Angio R/O PE REASON FOR EXAMINATION: Chest Pain; ; CT angiogram of the chest; Clinical statement: Chest pain and shortness of breath.; Technique: Multiple axial CT images were obtained from the thoracic inlet through the upper abdomen a; fter a bolus administration of nonionic intravenous contrast. Coronal and sagittal reconstructions we; re also obtained.; No comparison is available.; Findings: The pulmonary arteries are well-opacified with contrast, with no intraluminal filling defec; ts to suggest embolism. The thoracic aorta is unremarkable. Thyroid gland is within normal limits. Th; ere is no thoracic lymphadenopathy. There are no pericardial or pleural effusions. The lungs are lázaro; r. Limited imaging of the upper abdomen is unremarkable. There are no suspicious osseous lesions.; Impression: Unremarkable CT examination of the chest. No evidence of pulmonary embolism.; ; Outcome: 22:52 Discharge ordered by Provider. ml 23:00 Discharge Assessment: Patient awake, alert and oriented x 3. No cognitive and/or tavon functional deficits noted. Patient verbalized understanding of disposition instructions. patient administered narcotics - yes. Pt provided with safe discharge. The following High Risk Discharge criteria are identified: None. Condition: good. Discharge instructions given to patient, Instructed on discharge instructions, follow up and referral plans. Demonstrated understanding of instructions, Pt was receptive of discharge instructions/ teaching. CT Study completed. 23:01 Property sent home with patient. tavon 23:02 Patient left the ED. tavon Signatures: Dispatcher [employer] EDMS Alhaji Landis MD MD ml Sleeman, Kacey RN RN Inez Gibbons RN RN Shauna Arroyo, Reg Reg gb Keli VillalbaRN RN lf1 Noemi Bell, ASSOCIATE FACULTY ASSOCIATE FACULTY ar3 Swathi, Rashida, ASSOCIATE FACULTY ASSOCIATE FACULTY andrea Alma Waldron cmZay Franco gr2 Leonor Valentine,SHAMEKA RN ko2 Lillian Cote, Reg Reg ks16 Chart Complete MTDD
== END 2016-06-09 23:02 | disposition home or self-care (01) ==
LOC: M ED 17:15
DX: R07.9 Chest pain, unspecified (principal); I49.3 Ventricular premature depolarization; F41.9 Anxiety disorder, unspecified; K21.9 Gastro-esophageal reflux disease without esophagitis; N97.9 Female infertility, unspecified; Z79.899 Other long term (current) drug therapy
CPT/HCPCS: 36415; 71010; 71275; 80048; 82550; 82553; 83735; 84703; 85025; 93005; 93041; 99285; Q9967

== ENCOUNTER 2017-11-18 08:30 | Day surgery (SDC) | payer OTHER ==
[2017-11-18] MEDS: NS 1,000 ML IV (09:35)
[2017-11-18] MEDS ORDERED: PROPOFOL 200 MG/20 ML VIAL As Ordered (10:06)
== END 2017-11-18 10:54 | disposition home or self-care (01) ==
LOC: M OPP 08:30
DX: K22.4 Dyskinesia of esophagus (principal); K21.9 Gastro-esophageal reflux disease without esophagitis; K22.8 Other specified diseases of esophagus; R12 Heartburn; R00.2 Palpitations; D68.59 Other primary thrombophilia; G43.909 Migraine, unspecified, not intractable, without status migrainosus; F41.9 Anxiety disorder, unspecified; Z79.82 Long term (current) use of aspirin; Z79.899 Other long term (current) drug therapy; Z80.8 Family history of malignant neoplasm of other organs or systems; Z80.1 Family history of malignant neoplasm of trachea, bronchus and lung
CPT/HCPCS: 43239

== ENCOUNTER → 2019-04-04 | Outpatient (REF) | payer BC, OTHER ==
[~2019-04-04] MED LIST changes: +ASPI81TA26 PO; -LETR2.5T PO; +LETR2.5T2 PO; +MAGN400T5 PO; -OMEP40CA2 PO; +OMEP40CA97 PO; +PREVTAB2 PO; +vitamin B2 PO
== END ==
LOC: M LAB REF 19:15
PROVIDERS: ATTEND Physician Assistant Medical
DX: N39.0 Urinary tract infection, site not specified (principal)

== ENCOUNTER → 2019-07-03 | Outpatient (CLI) | payer BC, SELFPAY ==
[2019-07-03 10:29] LABS: HEMATOCRIT 39.3 % (36.0-47.0); MEAN CORPUSCULAR HEMOGLOBIN 30.4 pg (27.0-33.0); MEAN CORPUSCULAR HGB CONC 33.1 g/dl (32.0-36.5); MEAN CORPUSCULAR VOLUME 91.8 fl (80.0-96.0); PLATELET COUNT, AUTOMATED 297 10^3/uL (150-450); RED BLOOD COUNT 4.28 10^6/uL (4.00-5.40); WHITE BLOOD COUNT 5.3 10^3/uL (4.0-10.0)
[2019-07-03 10:59] LABS: SICKLE CELL SCREEN NEGATIVE (NEGATIVE)
[2019-07-03 11:05] LABS: ALT/SGPT 18 U/L (12-78); BILIRUBIN,TOTAL 0.5 MG/DL (0.2-1.0); BLOOD UREA NITROGEN 9 MG/DL (7-18); CALCIUM LEVEL 8.9 MG/DL (8.5-10.1); CARBON DIOXIDE LEVEL 25 MEQ/L (21-32); CHLORIDE LEVEL 107 MEQ/L (98-107); CHOLESTEROL LEVEL 159 MG/DL (<200); CHOLESTEROL RISK RATIO 2.564 (<5); CREATININE FOR GFR 0.74 MG/DL (0.55-1.30); GLOMERULAR FILTRATION RATE > 60.0 (>60); GLUCOSE, FASTING 90 MG/DL (70-100); HCG, SERUM QUANTITATIVE < 1.0 MIU/ML; HDL CHOLESTEROL 62 MG/DL (>40); LDL CHOLESTEROL 85 MG/DL (<100); NON-HDL-C 97 MG/DL; POTASSIUM SERUM 4.1 MEQ/L (3.5-5.1); SODIUM LEVEL 139 MEQ/L (136-145); TOTAL PROTEIN 7.4 GM/DL (6.4-8.2); TRIGLYCERIDES LEVEL 59 MG/DL (<150)
[2019-07-03 11:10] LABS: TESTOSTERONE 55 NG/DL (14-76)
[2019-07-03 11:11] LABS: PROGESTERONE 0.41 NG/ML
[2019-07-03 11:12] LABS: ESTRADIOL 40.5 PG/ML; LUTEINIZING HORMONE 2.9 mIU/mL; PROLACTIN 5.8 NG/ML
[2019-07-03 11:15] LABS: FOLLICLE STIMULATING HORMONE 5.5 mIU/mL
[2019-07-03 11:19] LABS: HEMOGLOBIN A1c 5.2 %
[2019-07-03 11:21] LABS: RUBELLA IgG QUALITATIVE IMMUNE (IMMUNE)
[2019-07-03 11:24] LABS: HEPATITIS B SURFACE ANTIGEN NEGATIVE (NEGATIVE)
[2019-07-03 11:49] LABS: HEPATITIS C VIRUS ABY INDEX < 0.0 INDEX (<0.8)
[2019-07-03 11:52] LABS: HIV 1&2 SCREEN CENTAUR NEGATIVE (NEGATIVE)
[2019-07-04 11:01] LABS: DRVV SCREEN 39.5 SEC
[2019-07-04 11:09] LABS: PTT LUPUS TYPE ANTICOAG SCREEN 1.1 (0-1.2)
== END ==
LOC: M LAB 08:13
PROVIDERS: ATTEND Obstetrics & Gynecology Reproductive Endocrinology
DX: E28.9 Ovarian dysfunction, unspecified (principal)

== ENCOUNTER → 2019-11-06 | Outpatient (REF) | payer SELFPAY | LOC: M SFHCADAM 12:39 | PROVIDERS: ATTEND Family Medicine | DX: Z11.59 Encounter for screening for other viral diseases (principal) ==

== ENCOUNTER → 2022-12-14 | Outpatient (CLI) | payer OTHER ==
[~2022-12-14] MED LIST changes: +OMEP40CA4 PO; -OMEP40CA97 PO
[2022-12-14 18:57] LABS: HEMATOCRIT 38.6 % (36.0-47.0); MEAN CORPUSCULAR HEMOGLOBIN 31.3 pg (27.0-33.0); MEAN CORPUSCULAR HGB CONC 33.7 g/dl (32.0-36.5); PLATELET COUNT, AUTOMATED 239 10^3/uL (150-450); RED BLOOD COUNT 4.15 10^6/uL (4.00-5.40); WHITE BLOOD COUNT 6.6 10^3/uL (4.0-10.0)
[2022-12-14 19:22] LABS: BLOOD UREA NITROGEN 8 MG/DL (9-23); CALCIUM LEVEL 10.3 MG/DL (8.5-10.1); CARBON DIOXIDE LEVEL 26 MMOL/L (20-31); CHLORIDE LEVEL 104 MMOL/L (98-107); GLOMERULAR FILTRATION RATE > 60.0 (>58); GLUCOSE, FASTING 174 MG/DL (60-100); HCG, SERUM QUANTITATIVE < 2.6 MIU/ML (<4.2); POTASSIUM SERUM 4.2 MMOL/L (3.5-5.1); SODIUM LEVEL 135 MMOL/L (136-145)
== END ==
LOC: M WUC 15:26
PROVIDERS: ATTEND Obstetrics & Gynecology
DX: E11.9 Type 2 diabetes mellitus without complications (principal); K90.9 Intestinal malabsorption, unspecified; P61.4 Other congenital anemias, not elsewhere classified; N18.6 End stage renal disease; I12.0 Hypertensive chronic kidney disease with stage 5 chronic kidney disease or end stage renal disease

== ENCOUNTER → 2024-10-06 | Outpatient (REF) | payer OTHER | LOC: M LAB REF 19:52 | PROVIDERS: ATTEND Physician Assistant | DX: R30.0 Dysuria (principal) ==